=== PATIENT | female | born 1995 ===

== ENCOUNTER 2021-03-23 23:33 | Inpatient (IN) | payer BC ==
[~2021-03-23] VITALS: Ht 167.6 cm; Wt 95.9 kg
[2021-03-24] MEDS ORDERED: TERBUTALINE 1 MG/ML, 1ML IVPush PRN
[2021-03-24] MEDS ORDERED: OXYTOCIN 10 UNITS/ML, 1ML IM ONE
[2021-03-24] MEDS ORDERED: OXYTOCIN 30U/ 0.9% NaCL 500ML 500 ML IV ONE
[2021-03-24] MEDS ORDERED: TERBUTALINE 1 MG/ML, 1ML SQ PRN
[2021-03-24 00:06] LABS: BASOPHILS % (AUTO) 1 % (0-1); EOSINOPHILS % (AUTO) 1 % (1-7); LYMPHOCYTES % (AUTO) 12 % (22-44); MEAN CORPUSCULAR HEMOGLOBIN 32.1 pg (27.0-34.8); MEAN CORPUSCULAR HGB CONC 34.4 g/dL (32.4-35.8); MEAN PLATELET VOLUME 8.3 fL (7.4-10.4); MONOCYTES % (AUTO) 6 % (2-9); NEUTROPHILS % (AUTO) 80 % (42-75); PLATELET COUNT 317 x10^3/uL (130-400); RED BLOOD COUNT 4.39 x10^6/uL (3.82-5.3); RED CELL DISTRIBUTION WIDTH 12.7 % (9.6-15.2)
[2021-03-24] MEDS ORDERED: OXYTOCIN 30U/ 0.9% NaCL 500ML 500 ML IV SCH ×2 (00:30)
[2021-03-24] MEDS ORDERED: SIMETHICONE 80 MG CHEW TAB PO PRN (00:30)
[2021-03-24] MEDS ORDERED: ONDANSETRON 2MG/ML, 2ML IV PRN (00:30)
[2021-03-24] MEDS ORDERED: HYDROcodone/APAP 5/325 TABLET PO PRN ×2 (00:30)
[2021-03-24] MEDS ORDERED: ACETAMINOPHEN 325 MG TABLET PO PRN ×2 (00:30)
[2021-03-24] MEDS ORDERED: BISACODYL 10 MG SUPP PR PRN (00:30)
[2021-03-24] MEDS ORDERED: DOCUSATE 100 MG CAPSULE PO PRN (00:30)
[2021-03-24] MEDS ORDERED: MISOPROSTOL 200 MCG TABLET PR PRN (00:30)
[2021-03-24] MEDS ORDERED: CALCIUM CARBONATE 500 MG TAB.CHEW PO PRN (00:30)
[2021-03-24] MEDS ORDERED: NEWBORN KIT ONE (00:40)
[2021-03-24] MEDS ORDERED: MISOPROSTOL 200 MCG TABLET ONE (00:40)
[2021-03-24] MEDS ORDERED: OXYTOCIN 10 UNITS/ML, 1ML ONE (00:40)
[2021-03-24] MEDS ORDERED: PLEASE ENTER HEIGHT AND WEIGHT MC SCH (01:00)
[2021-03-24] MEDS ORDERED: PREN1TAB79 PEG (01:26)
[2021-03-24] MEDS ORDERED: LIDOCAINE 1%, 20ML ONE (01:47)
[2021-03-24 02:30] VITALS: BP 143/83
[2021-03-24 03:10] VITALS: BP 114/75
[2021-03-24] MEDS: IBUPROFEN 600 MG TABLET PO PRN ×3 (05:57→23:58)
[2021-03-24 07:46] LABS: BASOPHILS % (AUTO) 1 % (0-1); EOSINOPHILS % (AUTO) 0 % (1-7); LYMPHOCYTES % (AUTO) 12 % (22-44); MEAN CORPUSCULAR HEMOGLOBIN 31.3 pg (27.0-34.8); MEAN CORPUSCULAR HGB CONC 33.9 g/dL (32.4-35.8); MEAN PLATELET VOLUME 8.3 fL (7.4-10.4); MONOCYTES % (AUTO) 7 % (2-9); NEUTROPHILS % (AUTO) 81 % (42-75); PLATELET COUNT 292 x10^3/uL (130-400); RED BLOOD COUNT 4.14 x10^6/uL (3.82-5.3); RED CELL DISTRIBUTION WIDTH 12.6 % (9.6-15.2)
[2021-03-24 08:57] VITALS: BP 123/74
[2021-03-24] MEDS: PRENATAL VIT/IRON/FA 1 EACH TABLET PO SCH (09:00)
[2021-03-24 12:30] VITALS: BP 110/74
[2021-03-24 16:39] VITALS: BP 137/88
[2021-03-24 19:25] VITALS: BP 116/71
[2021-03-25 08:15] VITALS: BP 126/80
[2021-03-25] MEDS: PRENATAL VIT/IRON/FA 1 EACH TABLET PO SCH (11:36)
[2021-03-25] MEDS: IBUPROFEN 600 MG TABLET PO PRN (11:36)
[2021-03-25] MEDS ORDERED: PREN1TAB98 PO (14:58)
[2021-03-25 20:00] VITALS: BP 125/85
== END 2021-03-25 21:47 | disposition home or self-care (01) | DRG 807 ==
LOC: LDOP 23:33 → LDIP 23:35 → 2NW 03-24 02:24
PROVIDERS: ADMIT Student in an Organized Health Care Education/Training Program; ATTEND Student in an Organized Health Care Education/Training Program
PROC: 10E0XZZ Delivery of Products of Conception, External Approach (ICD-10-PCS; principal; 2021-03-23)
DX: O69.81X0 Labor and delivery complicated by cord around neck, without compression, not applicable or unspecified (principal); Z37.0 Single live birth; E66.9 Obesity, unspecified; O99.214 Obesity complicating childbirth; O99.824 Streptococcus B carrier state complicating childbirth; Z3A.38 38 weeks gestation of pregnancy; Z80.3 Family history of malignant neoplasm of breast; Z80.41 Family history of malignant neoplasm of ovary; Z80.8 Family history of malignant neoplasm of other organs or systems; Z87.59 Personal history of other complications of pregnancy, childbirth and the puerperium; Z87.891 Personal history of nicotine dependence
CPT/HCPCS: 36415; 85025; 86592; 86850; 86900; G0378